=== PATIENT | female | born 1980 | race Caucasian/White ===

== ENCOUNTER → 2016-11-06 | Outpatient (CLI) | payer BC ==
[~2016-11-06] VITALS: Ht 162.6 cm; Wt 131.5 kg
[~2016-11-06] MED LIST: 12 HOUR DECONG120 M1 PO; ADVAIR 250-501 EACH IH; ADVAIR 500/501 DISK IH; ALBUTEROL17 GM IH; AUGMENTIN875 MG PO; AZELASTINE137 MCG/0. BOTH NARES; Benadryl IV; CARDIZEM30 MG PO; DOXYCYCLINE HY100 MG PO; DULERA 200 MCG/13 GM IH; DUONEB3 ML IH; ENDOCET 5-3251 EACH PO; IRON325 M1 PO; LEVAQUIN750 MG PO; MOTRIN IB200 MG PO; MYCOSTATIN 100,60 ML PO; Morphine Sulfate IV; NACL IV; OMEPRAZOLE40 M1 PO; ONE DAILY FOR1 EAC1 PO; PANTOPRAZOLE SO40 MG PO; PERCOCET 5/31 TABLET PO; PHENERGAN-CODE120 ML PO; PREDNISONE10 M1 PO; PREDNISONE10 MG PO; PREDNISONE20 MG PO; PRENATAL1 EACH PO; PRILOSEC40 MG PO; PROAIR HFA8.5 GM IH; PROVENTIL,2.5 MG/3 M IH; Protonix IV; QNASL8.7 GM BOTH NARES; ROBITUSSIN AC,T10 ML PO; SINGULAIR10 MG PO; SPRINTEC1 EACH PO; VENTOLIN HFA18 GM IH; VENTOLIN17 GM IH; Xylocaine Viscous 2% MM; ZITHROMAX250 MG PO; ZOFRAN ODT4 MG PO; ZOFRAN4 MG PO; Zofran IV; [UNRECOGNIZED DRUG - OTHER] IV
== END | disposition home or self-care (01) ==
LOC: AMB 10-16 14:00 → OPR 10-16 16:00 → AMB 14:00
DX: Z12.11 Encounter for screening for malignant neoplasm of colon (principal); D12.0 Benign neoplasm of cecum; Z86.010 Personal history of colon polyps; K21.9 Gastro-esophageal reflux disease without esophagitis; Z80.0 Family history of malignant neoplasm of digestive organs; K64.8 Other hemorrhoids; J45.909 Unspecified asthma, uncomplicated; E66.9 Obesity, unspecified; Z68.43 Body mass index [BMI] 50.0-59.9, adult
CPT/HCPCS: 88305; 88312; 88342 TC; J2704

== ENCOUNTER → 2017-03-25 | Outpatient (CLI) | payer BC | END | disposition home or self-care (01) | LOC: CDC 10:45 | DX: Z01.810 Encounter for preprocedural cardiovascular examination (principal); G56.01 Carpal tunnel syndrome, right upper limb | CPT/HCPCS: 93000 ==

== ENCOUNTER → 2017-08-04 | Outpatient (CLI) | payer BC ==
[~2017-08-04] VITALS: Ht 160 cm; Wt 130.7 kg
[~2017-08-04] MED LIST changes: +BREO ELLIPTA 21 EACH IH; +CARAFATE1 GM PO; +DICYCLOMINE HCL20 MG PO; +FLONASE16 G1 BOTH NARES
== END | disposition home or self-care (01) ==
LOC: AMB 14:00
DX: B37.81 Candidal esophagitis (principal); K31.7 Polyp of stomach and duodenum; K29.50 Unspecified chronic gastritis without bleeding; J45.909 Unspecified asthma, uncomplicated; Z87.891 Personal history of nicotine dependence; K21.9 Gastro-esophageal reflux disease without esophagitis; E66.9 Obesity, unspecified; Z68.43 Body mass index [BMI] 50.0-59.9, adult
CPT/HCPCS: 88305; 88312; 88342 TC; J2250

== ENCOUNTER 2017-09-06 17:52 | Emergency (ER) | payer BC ==
[~2017-09-06] VITALS: Ht 160 cm; Wt 126.7 kg
[2017-09-06 18:26] LABS: HEMATOCRIT 39.5 % (36.0-46.0); HEMOGLOBIN 13.5 G/DL (11.9-15.5); MCH 29.3 PG (29.0-34.0); MCHC 34.2 G/DL (30.0-36.0); MCV 85.9 FL (83-99); PLATELET COUNT 279 K/uL (156-360); RBC DIS.WIDTH-CV 12.8 % (11.8-14.6); RBC DIS.WIDTH-SD 39.9 % (39-53); WHITE BLOOD COUNT 7.9 K/uL (4.1-10.2)
[2017-09-06 18:37] LABS: ALBUMIN 4.3 g/dL (3.2-4.8); CHLORIDE 105 mEq/L (99-109); SODIUM 140 mEq/L (136-147)
[2017-09-06 18:40] LABS: GLUCOSE 97 mg/dL (70-99); TOTAL PROTEIN 7.4 g/dL (6.4-8.3)
[2017-09-06 18:42] LABS: TOTAL BILIRUBIN 0.6 mg/dL (0.0-1.0)
[2017-09-06 18:43] LABS: ALKALINE PHOSPHATASE 92 IU/L (3-129); CREATININE 0.7 mg/dL (0.6-1.3); GFR ESTIMATE (CALCULATED) > 59 mL/min/
[2017-09-06 18:44] LABS: UREA NITROGEN (BUN) 7 mg/dL (9-23)
[2017-09-06 18:45] LABS: AST (GOT) 78 IU/L (2-34)
[2017-09-06 18:45] LABS: APPEARANCE SL.HAZY ((CLEAR)); BILIRUBIN NEGATIVE; BLOOD NEGATIVE; COLOR AMBER ((YELLOW)); GLUCOSE (STRIP) NEGATIVE; KETONES NEGATIVE; LEUKOCYTES SMALL; NITRITE NEGATIVE; PROTEIN (STRIP) 30; SPECIFIC GRAVITY 1.021 (1.000-1.030)
[2017-09-06 18:46] LABS: ALT (GPT) 126 IU/L (3-49)
[2017-09-06 18:49] LABS: BACTERIA RARE /HPF; EPITHELIAL CELLS 3+ /HPF; MUCUS TRACE /LPF; RED BLOOD CELLS 0-5 /HPF (0-5); UCUL ADDED? YES
[2017-09-06 19:16] LABS: LIPASE 15 U/L (1.0-51.0)
[2017-09-06 19:23] LABS: QUANTITATIVE HCG < 4.0 MIU/ML
[2017-09-06] MEDS ORDERED: NORCO 5/3251 TABLET PO (20:35)
[2017-09-06] MEDS ORDERED: ZOFRAN ODT8 MG PO (20:35)
[2017-09-06] MEDS ORDERED: K-DUR20 MEQ PO (20:35)
[2017-09-06 21:03] VITALS: BP 118/84
== END 2017-09-06 21:05 | disposition home or self-care (01) ==
LOC: EME 17:52
DX: R19.7 Diarrhea, unspecified (principal); R10.12 Left upper quadrant pain; R10.11 Right upper quadrant pain; K21.9 Gastro-esophageal reflux disease without esophagitis; J45.909 Unspecified asthma, uncomplicated; G43.909 Migraine, unspecified, not intractable, without status migrainosus; Z87.891 Personal history of nicotine dependence; Z90.49 Acquired absence of other specified parts of digestive tract; Z87.11 Personal history of peptic ulcer disease; Z87.19 Personal history of other diseases of the digestive system; Z87.442 Personal history of urinary calculi; Z88.6 Allergy status to analgesic agent; Z88.8 Allergy status to other drugs, medicaments and biological substances
CPT/HCPCS: 80053; 81003; 83690; 84702; 85027; 87077; 87086; 87186; 99281; 99285; J0500; J2405; J3010; J7030